=== PATIENT | female | born 1995 ===

== ENCOUNTER 2017-12-10 02:22 | Emergency (ER) | payer SELFPAY ==
[2017-12-10 02:42] VITALS: RESP 20
[2017-12-10] MEDS ORDERED: Tetanus/Diphtheria Toxoids 0.5 ml Syringe IM ONE (02:54)
[2017-12-10] MEDS ORDERED: Tdap Vaccine 0.5 ml Vial (10-64 yrs) IM ONE (03:00)
[2017-12-10] MEDS ORDERED: Amoxicillin-Clav 875-125 mg Tab PO STA (03:00)
[2017-12-10] MEDS ORDERED: Amoxicillin-Clav 875-125 mg Tab PO ONE (03:08)
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
[2017-12-10 03:52] VITALS: BP 96/57; PULSE 86; TEMP 98
[2017-12-10 04:33] VITALS: O2SAT 98
== END 2017-12-10 04:00 | disposition home or self-care (01) ==
LOC: C.ER 02:22
DX: S71.152A Open bite, left thigh, initial encounter (principal); Y04.1XXA Assault by human bite, initial encounter; Z23 Encounter for immunization